=== PATIENT | male | born 1990 | race Two or more races ===

== ENCOUNTER 2020-07-20 10:30 | Emergency (ER) | payer OTHER ==
[~2020-07-20] VITALS: Ht 190.5 cm; Wt 139.7 kg
[~2020-07-20 10:30] MED LIST: CEFTIN250 MG PO; PEPCID40 MG PO; ZOFRAN4 MG PO
== END 2020-07-20 12:34 | disposition home or self-care (01) ==
LOC: ER 10:30
DX: S80.01XA Contusion of right knee, initial encounter (principal); V49.9XXA Car occupant (driver) (passenger) injured in unspecified traffic accident, initial encounter; Y93.89 Activity, other specified; Y92.488 Other paved roadways as the place of occurrence of the external cause; Y99.8 Other external cause status